=== PATIENT | female | born 1995 | race Caucasian/White ===

== ENCOUNTER 2022-09-10 14:13 | Emergency (ER) | payer SELFPAY ==
[~2022-09-10] VITALS: Ht 162.5 cm; Wt 50.8 kg
[2022-09-10] MEDS ORDERED: fentaNYL INJ 100 MCG/2 ML AMP IVP STA (14:26)
[2022-09-10] MEDS ORDERED: ONDANSETRON 4 MG/2 ML (SDV) Z0FRAN IVP ONE (14:30)
[2022-09-10] MEDS ORDERED: NS IV 1000 ML 1,000 ML IV SCH (14:30)
--- NOTE | 2022-09-10 14:32 | ED Abdominal Pain ---
General Chief Complaint: Abdominal/GI Problems Stated Complaint: ABD PAIN | POSSIBLE APPENDIX Nursing Triage Note: PT AMB TO RM 3 WITH SPOUSE WITH C/O LOW ABD PAIN AND RADIATES TO HER BACK. PT STATES IT IS CONSTANT AND A CRAMPING FEELING. PT DENIES BLEEDING Source of Information: Patient Exam Limitations: No Limitations History of Present Illness Date Seen by Provider: Sep 10, 2022 Time Seen by Provider: 14:14 Initial Comments 27-year-old female presents to the ED with severe suprapubic abdominal pain that radiates straight to her back which started about 30 minutes ago during intercourse. She reports she was vomiting prior to arrival as well. Denies fevers, dysuria, vaginal bleeding or discharge. She last had a normal bowel yesterday. She has had a partial hysterectomy 6 years ago, does not have periods. Denies any past medical history, does not take any medications. Has had 3 C-sections, otherwise no other abdominal surgeries. Allergies and Home Medications Allergies Coded Allergies: Penicillins (Verified Allergy, Unknown, Hives, 09/10/22) amoxicillin (Verified Allergy, Unknown, Hives, 09/10/22) Patient Home Medication List Home Medication List Reviewed: Yes Hydrocodone/Acetaminophen (Hydrocodone-Acetamin 5-325 mg) 5 Mg-325 Mg Tablet, 1 TAB PO Q4H PRN for PAIN-MODERATE (5-7) Prescribed by: Tish Christine on 09/10/22 1708 Review of Systems Review of Systems Constitutional: see HPI Past Okmmmwo-Pchowv-Bpqfpj Hx Patient Social History Tobacco Use?: Yes Tobacco type used: Cigarettes Substance use?: No Alcohol Use?: Yes Alcohol Frequency: Rarely Pt feels they are or have been: No Immunizations Up To Date Influenza Vaccine Up-to-Date: No; Not Current First/Initial COVID19 Vaccinat: YES Second COVID19 Vaccination Madi: YES Past Medical History Surgery/Hospitalization HX: PARTIAL HYST, X3 Physical Exam Vital Signs Vital Signs - First Documented 09/10/22 14:15 Temp 36.0 Pulse 92 Resp 20 B/P (MAP) 137/117 (124) Capillary Refill : Height/Weight/BMI Height: '" Weight: lbs. oz. kg; 19.00 BMI Method: General Appearance: WD/WN, moderate distress Neck: supple, normal inspection Respiratory: lungs clear, normal breath sounds, no respiratory distress, no accessory muscle use Cardiovascular: regular rate, rhythm, no edema, no gallop, no JVD, no murmur Gastrointestinal: normal bowel sounds, soft, guarding, tenderness (Right lower quadrant, suprapubic, right upper quadrant) Extremities: normal range of motion, normal inspection Neurologic/Psychiatric: alert, normal mood/affect Skin: normal color, warm/dry Progress/Results/Core Measures Results/Orders Lab Results Laboratory Tests Test 09/10/22 14:18 09/10/22 14:28 Range/Units White Blood Count 6.9 4.3-11.0 10^3/uL Red Blood Count 5.08 3.80-5.11 10^6/uL Hemoglobin 16.1 H 11.5-16.0 g/dL Hematocrit 46 35-52 % Mean Corpuscular Volume 90 80-99 fL Mean Corpuscular Hemoglobin 32 25-34 pg Mean Corpuscular Hemoglobin Concent 35 32-36 g/dL Red Cell Distribution Width 11.6 10.0-14.5 % Platelet Count 179 130-400 10^3/uL Mean Platelet Volume 11.0 9.0-12.2 fL Immature Granulocyte % (Auto) 0 % Neutrophils (%) (Auto) 49 42-75 % Lymphocytes (%) (Auto) 38 12-44 % Monocytes (%) (Auto) 10 0-12 % Eosinophils (%) (Auto) 3 0-10 % Basophils (%) (Auto) 1 0-10 % Neutrophils # (Auto) 3.4 1.8-7.8 10^3/uL Lymphocytes # (Auto) 2.6 1.0-4.0 10^3/uL Monocytes # (Auto) 0.7 0.0-1.0 10^3/uL Eosinophils # (Auto) 0.2 0.0-0.3 10^3/uL Basophils # (Auto) 0.1 0.0-0.1 10^3/uL Immature Granulocyte # (Auto) 0.0 0.0-0.1 10^3/uL Sodium Level 139 135-145 MMOL/L Potassium Level 3.9 3.6-5.0 MMOL/L Chloride Level 107 98-107 MMOL/L Carbon Dioxide Level 21 21-32 MMOL/L Anion Gap 11 5-14 MMOL/L Blood Urea Nitrogen 11 7-18 MG/DL Creatinine 0.88 0.60-1.30 MG/DL Estimat Glomerular Filtration Rate 91 BUN/Creatinine Ratio 13 Glucose Level 98 70-105 MG/DL Calcium Level 9.8 8.5-10.1 MG/DL Corrected Calcium 8.5-10.1 MG/DL Total Bilirubin 1.8 H 0.1-1.0 MG/DL Aspartate Amino Transf (AST/SGOT) 13 5-34 U/L Alanine Aminotransferase (ALT/SGPT) 13 0-55 U/L Alkaline Phosphatase 44 40-136 U/L C-Reactive Protein High Sensitivity 0.02 0.00-0.50 MG/DL Total Protein 8.0 6.4-8.2 GM/DL Albumin 4.8 H 3.2-4.5 GM/DL Amylase Level 56 25-125 U/L Lipase 18 8-78 U/L Urine Color YELLOW Urine Clarity CLEAR Urine pH 5.5 5-9 Urine Specific [place] >=1.030 1.016-1.022 Urine Protein NEGATIVE NEGATIVE Urine Glucose (UA) NEGATIVE NEGATIVE Urine Ketones NEGATIVE NEGATIVE Urine Nitrite NEGATIVE NEGATIVE Urine Bilirubin NEGATIVE NEGATIVE Urine Urobilinogen 0.2 < = 1.0 MG/DL Urine Leukocyte Esterase NEGATIVE NEGATIVE Urine RBC (Auto) NEGATIVE NEGATIVE Urine RBC 2-5 H /HPF Urine WBC 0-2 /HPF Urine Squamous Epithelial Cells 2-5 /HPF Urine Crystals NONE /LPF Urine Bacteria MODERATE H /HPF Urine Casts NONE /LPF Urine Mucus MODERATE H /LPF Urine Culture Indicated YES My Orders Orders - TISH CHRISTINE APRN Ua Culture If Indicated (09/10/22 14:14) Urine Bedside (09/10/22 14:14) Comprehensive Metabolic Panel (09/10/22 14:21) Lipase (09/10/22 14:21) Amylase (09/10/22 14:21) Cbc With Automated Diff (09/10/22 14:21) Ct Abd/Pelv W (Appendicitis) (09/10/22 14:26) Fentanyl Inj (Sublimaze Injection) (09/10/22 14:26) Ondansetron Injection (Zofran Injectio (09/10/22 14:30) Ed Iv/Invasive Line Start (09/10/22 14:26) Ns Iv 1000 Ml (Sodium Chloride 0.9%) (09/10/22 14:30) Hs C Reactive Protein (09/10/22 14:41) Urine Culture (09/10/22 14:28) Iohexol Injection (Omnipaque 350 Mg/Ml 1 (09/10/22 15:15) Ns (Ivpb) (Sodium Chloride 0.9% Ivpb Bag (09/10/22 15:15) Us Non Ob Pelvis Comp/Transvag (09/10/22 15:46) Fentanyl Inj (Sublimaze Injection) (09/10/22 16:45) Medications Given in ED Current Medications Medications Dose Ordered Sig/Mundo Route Start Time Stop Time Status Last Admin Dose Admin Fentanyl Citrate 50 mcg ONCE ONCE IVP 09/10/22 16:45 09/10/22 16:46 DC 09/10/22 16:50 50 MCG Ondansetron HCl 4 mg ONCE ONCE IVP 09/10/22 14:30 09/10/22 14:31 DC 09/10/22 14:39 4 MG Vital Signs/I&O 09/10/22 09/10/22 14:15 17:17 Temp 36.0 36.0 Pulse 92 70 Resp 20 18 B/P (MAP) 137/117 (124) 106/67 Blood Pressure Mean: 124 Progress Progress Note : Time: 14:31 Progress Note Patient seen and evaluated, resting in bed, moderate distress. Based on exam and symptoms, concerned for appendicitis, ovarian torsion, ovarian cyst, PID, UTI, nephrolithiasis. Work-up initiated including CBC, CMP, amylase, lipase, UA, urine , CT abdomen pelvis. IV fluids, fentanyl, Zofran ordered. [address] reviewed. CBC shows normal WBC 6.9, elevated hemoglobin 16.1, normal hematocrit 46. CMP grossly negative, total bilirubin slightly elevated 1.8, albumin elevated 4.8. CRP normal at 0.02. UA shows 2-5 RBCs, moderate bacteria, negative for leukocytes, nitrates, WBCs. CT reviewed. It shows complex tissue in the right adnexal region which could be ovarian in nature. Possible ovarian dermoid cyst, radiologist recommends ultrasound to rule out ovarian torsion. I also recommend ultrasound to further view the appendix due to it being obscured on the CT. The appendix is not thickened on CT. Transvaginal ultrasound ordered. 1700 patient required another dose of fentanyl for pain. Ultrasound reviewed. It shows right hemorrhagic cyst. Negative for ovarian torsion. Results discussed with patient. Patient instructed to follow-up with [facility]. Will dis charge with short course of pain medications. Discharge instructions and return precautions provided. Diagnostic Imaging Diagonstic Imaging: CT Plain Films/CT/US/NM/MRI: abdomen, pelvis Comments [facility]. [place], [place] NAME: MELANI PHELPS [facility] REC#: [id number] PT STATUS: DEP ER : 1995 PHYSICIAN: TISH CHRISTINE APRN ADMIT DATE: 09/10/22/ER Signed Date of Exam:09/10/22 CT ABD/PELV W (APPENDICITIS) PROCEDURE: CT abdomen and pelvis with contrast, rule out appendicitis. TECHNIQUE: Multiple contiguous axial images were obtained through the abdomen and pelvis after the administration of intravenous contrast. All CT scans use one or more of the following dose optimizing techniques: Automated exposure control, MA and/or KvP adjustment based on patient size and exam type or iterative reconstruction. INDICATION: Right lower quadrant pain. FINDINGS: There is no focal hepatic, gallbladder, or biliary tree abnormality, although there is evidence of at least one stone within the lumen of the gallbladder. No pericholecystic fluid is seen. There is no evidence of pancreatic, adrenal gland, or splenic lesion. Kidneys are also unremarkable in appearance. The appendix is somewhat obscured in the right lower quadrant without thickened appendix visible. There is, however, a complex structure in the right adnexal region with a thin-walled encapsulated structure measuring 3.7 cm in diameter, which may contain fluid and solid components. There is surrounding fluid and possible inflammation as well. Unopacified bladder is unremarkable. No pathologically enlarged adenopathy is seen. IMPRESSION: Complex tissue in the right adnexal region could be ovarian in nature. Possibility of ovarian dermoid is not excluded. Given pain in this region, ultrasonography would be useful to confirm blood flow to the right ovary and exclude ovarian torsion. This may also be useful in identifying the appendix for further characterization. Either primary or secondary appendiceal inflammation is not excluded. Dictated by: Dictated on workstation # [id number] Dict: 09/10/22 1522 Trans: 09/10/22 1725 [id number] Interpreted by: HAILEY NORRIS MD Electronically signed by: HAILEY NORRIS MD 09/10/22 1725 Diagonstic Imaging: Ultrasound Plain Films/CT/US/NM/MRI: pelvis Comments [facility] [place] [place] NAME: MELANI PHELPS [facility] REC#: [id number] PT STATUS: REG ER : 1995 PHYSICIAN: TISH CHRISTINE APRN ADMIT DATE: 09/10/22/ER Signed Date of Exam:09/10/22 US NON OB PELVIS COMP/TRANSVAG PROCEDURE: US Non-ob pelvis comp/trans. TECHNIQUE: Multiple realtime grayscale images were obtained of the pelvis in various projections endovaginally. Transabdominal imaging was also performed. INDICATION: Ovarian cyst, torsion. COMPARISON: CT abdomen and pelvis from same day. FINDINGS: The uterus is surgically absent. A small amount of free fluid is present within the pelvis. The right ovary measures 3.8 x 2.8 x 4.2 cm. Blood flow is present within the normal ovarian tissue. Within the ovary, there is a complicated cyst with internal lacelike echogenic foci suggestive of hemorrhage. Additionally, there is likely some retracted clot along the wall. Overall, the cyst measures approximately 3.6 cm in maximal diameter. The left ovary measures 3.3 x 1.9 x 2.8 cm. Blood flow is present in the left ovary. IMPRESSION: 1. Ultrasound confirms that the right ovarian lesion as a hemorrhagic cyst. 2. No ovarian torsion. Dictated by: Dictated on workstation # [id number] Dict: 09/10/22 1653 Trans: 09/10/[address] [facility] [id number] Interpreted by: MARCO BARRIENTOS MD Electronically signed by: MARCO BARRIENTOS MD 09/10/221722 Departure Impression Primary Impression: Hemorrhagic cyst of right ovary Disposition: 01 HOME, SELF-CARE Condition: Stable Departure-Patient Inst. Decision time for Depature: 17:05 Referrals: DESIREE WILEY DO Patient Instructions: Ovarian Cysts Add. Discharge Instructions: Take [place] as needed for pain. You may also take 800 mg of ibuprofen every 8 hours with food as needed for pain. Follow-up with SILVICULTURE PROFESS[facility]. You may call our SILVICULTURE PROFESS[facility] here, or you can go to any [facility] you would like. Call them first in the morning to schedule a follow-up. Return for dizziness, lightheadedness, passing out, chest pain, shortness of breath, or any other new, concerning, or worsening symptoms. All discharge instructions reviewed with patient and/or family. Voiced understanding. Scripts Hydrocodone/Acetaminophen (Hydrocodone-Acetamin 5-325 mg) 5 Mg-325 Mg Tablet 1 TAB PO Q4H PRN for PAIN-MODERATE (5-7), #15 TAB 0 Refills Prov: TISH CHRISTINE APRN 09/10/22 TISH CHRISTINE APRN Sep 10, 2022 14:32
[2022-09-10 14:33] LABS: BASOPHILS # (AUTO) 0.1 10^3/uL (0.0-0.1); BASOPHILS % (AUTO) 1 % (0-10); EOSINOPHILS # (AUTO) 0.2 10^3/uL (0.0-0.3); EOSINOPHILS % (AUTO) 3 % (0-10); HEMATOCRIT 46 % (35-52); HEMOGLOBIN 16.1 g/dL (11.5-16.0); LYMPHOCYTES # (AUTO) 2.6 10^3/uL (1.0-4.0); LYMPHOCYTES % (AUTO) 38 % (12-44); MEAN CORPUSCULAR HEMOGLOBIN 32 pg (25-34); MEAN CORPUSCULAR HGB CONC 35 g/dL (32-36); MEAN CORPUSCULAR VOLUME 90 fL (80-99); MONOCYTES # (AUTO) 0.7 10^3/uL (0.0-1.0); MONOCYTES % (AUTO) 10 % (0-12); NEUTROPHILS # (AUTO) 3.4 10^3/uL (1.8-7.8); NEUTROPHILS % (AUTO) 49 % (42-75); PLATELET COUNT 179 10^3/uL (130-400); WHITE BLOOD COUNT 6.9 10^3/uL (4.3-11.0)
[2022-09-10 14:38] LABS: BILIRUBIN,URINE NEGATIVE (NEGATIVE); CLARITY,URINE CLEAR; COLOR,URINE YELLOW; GLUCOSE, URINE (UA) NEGATIVE (NEGATIVE); KETONES,URINE NEGATIVE (NEGATIVE); LEUKOCYTE ESTERASE ,URINE NEGATIVE (NEGATIVE); NITRITE,URINE NEGATIVE (NEGATIVE); PH,URINE 5.5 (5-9); PROTEIN,URINE NEGATIVE (NEGATIVE)
[2022-09-10 14:50] LABS: ALBUMIN 4.8 GM/DL (3.2-4.5); CHLORIDE 107 MMOL/L (98-107); POTASSIUM 3.9 MMOL/L (3.6-5.0); SODIUM 139 MMOL/L (135-145)
[2022-09-10 14:51] LABS: AMYLASE 56 U/L (25-125)
[2022-09-10 14:52] LABS: CALCIUM 9.8 MG/DL (8.5-10.1)
[2022-09-10 14:53] LABS: GLUCOSE 98 MG/DL (70-105)
[2022-09-10 14:54] LABS: CARBON DIOXIDE 21 MMOL/L (21-32)
[2022-09-10 14:55] LABS: BILIRUBIN,TOTAL 1.8 MG/DL (0.1-1.0)
[2022-09-10 14:55] LABS: BACTERIA,URINE MODERATE /HPF; WBC,URINE 0-2 /HPF
[2022-09-10 14:56] LABS: ALKALINE PHOSPHATASE 44 U/L (40-136); CREATININE SERUM 0.88 MG/DL (0.60-1.30); GFR ESTIMATED 91
[2022-09-10 14:57] LABS: BUN/CREATININE RATIO 13
[2022-09-10 14:59] LABS: ALANINE AMINOTRANSFERASE 13 U/L (0-55)
[2022-09-10 15:00] LABS: LIPASE 18 U/L (8-78)
[2022-09-10] MEDS ORDERED: IOHEXOL 350 MG/ML 100 ML (OMNIPAQUE 350) VIAL IV ONE (15:15)
[2022-09-10] MEDS ORDERED: NS 100 ML (IVPB) BAG IV ONE (15:15)
--- NOTE | 2022-09-10 15:30 | Diagnostic Imaging Report ---
PROCEDURE: CT abdomen and pelvis with contrast, rule out appendicitis. TECHNIQUE: Multiple contiguous axial images were obtained through the abdomen and pelvis after the administration of intravenous contrast. All CT scans use one or more of the following dose optimizing techniques: Automated exposure control, MA and/or KvP adjustment based on patient size and exam type or iterative reconstruction. INDICATION: Right lower quadrant pain. FINDINGS: There is no focal hepatic, gallbladder, or biliary tree abnormality, although there is evidence of at least one stone within the lumen of the gallbladder. No pericholecystic fluid is seen. There is no evidence of pancreatic, adrenal gland, or splenic lesion. Kidneys are also unremarkable in appearance. The appendix is somewhat obscured in the right lower quadrant without thickened appendix visible. There is, however, a complex structure in the right adnexal region with a thin-walled encapsulated structure measuring 3.7 cm in diameter, which may contain fluid and solid components. There is surrounding fluid and possible inflammation as well. Unopacified bladder is unremarkable. No pathologically enlarged adenopathy is seen. IMPRESSION: Complex tissue in the right adnexal region could be ovarian in nature. Possibility of ovarian dermoid is not excluded. Given pain in this region, ultrasonography would be useful to confirm blood flow to the right ovary and exclude ovarian torsion. This may also be useful in identifying the appendix for further characterization. Either primary or secondary appendiceal inflammation is not excluded. Dictated by: Dictated on workstation # [id number]
[2022-09-10] MEDS ORDERED: fentaNYL INJ 100 MCG/2 ML AMP IVP ONE (16:45)
--- NOTE | 2022-09-10 16:58 | Diagnostic Imaging Report ---
PROCEDURE: US Non-ob pelvis comp/trans. TECHNIQUE: Multiple realtime grayscale images were obtained of the pelvis in various projections endovaginally. Transabdominal imaging was also performed. INDICATION: Ovarian cyst, torsion. COMPARISON: CT abdomen and pelvis from same day. FINDINGS: The uterus is surgically absent. A small amount of free fluid is present within the pelvis. The right ovary measures 3.8 x 2.8 x 4.2 cm. Blood flow is present within the normal ovarian tissue. Within the ovary, there is a complicated cyst with internal lacelike echogenic foci suggestive of hemorrhage. Additionally, there is likely some retracted clot along the wall. Overall, the cyst measures approximately 3.6 cm in maximal diameter. The left ovary measures 3.3 x 1.9 x 2.8 cm. Blood flow is present in the left ovary. IMPRESSION: 1. Ultrasound confirms that the right ovarian lesion as a hemorrhagic cyst. 2. No ovarian torsion. Dictated by: Dictated on workstation # [id number]
[2022-09-10] MEDS ORDERED: ACHD5005 PO (17:07)
[2022-09-10 17:17] VITALS: BP 106/67
== END 2022-09-10 17:20 | disposition home or self-care (01) ==
LOC: ER 14:16
DX: N83.201 Unspecified ovarian cyst, right side (principal); E80.7 Disorder of bilirubin metabolism, unspecified; R77.0 Abnormality of albumin; F17.210 Nicotine dependence, cigarettes, uncomplicated
CPT/HCPCS: 36415; 74177; 76830; 76856; 80053; 81000; 82150; 83690; 84703; 85025; 86141; 87077; 87088; 87186